=== PATIENT | female | born 1950 | race Caucasian/White ===

== ENCOUNTER 2024-08-17 12:16 | Emergency (ER) | payer BC ==
--- NOTE | 2024-08-17 13:40 | RAD REPORT ---
EXAMINATION: CT LUMBAR SPINE WITHOUT CONTRAST CLINICAL INDICATION: Female, 73 years old. low back pain TECHNIQUE: Axial CT images were obtained through the lumbar spine in soft tissue and bone windows wit hout intravenous contrast. Coronal and Sagittal reformatted images were created from the data set. One or more of the following dose reduction techniques were used: Automated exposure control, adjustm ent of the mA and/ or kV according to patient size, and/or iterative reconstruction. Unless otherwise specified, incidental findings do not require dedicated imaging follow-up. [id number]. COMPARISON: No prior exam. FINDINGS: For purposes of this dictation, it is assumed that there are 5 non rib-bearing lumbar type vertebrae, and the most caudal fully segmented lumbar vertebra is labeled L5. ALIGNMENT: Thoracolumbar curvature. Retrolisthesis of L1 on L2 and L2 on L3 BONES: No significant soft tissue abnormalities. No aggressive osseous lesions. DISCS: Varying degrees of disc height loss. LEVELS: Multilevel degenerative changes with varying degrees of neural foraminal narrowing. No high-g rade central spinal stenosis. SOFT TISSUE: No soft tissue abnormalities. Atherosclerosis. IMPRESSION: No acute lumbar spine abnormalities.
--- NOTE | 2024-08-17 13:43 | RAD REPORT ---
EXAMINATION: Pelvis Wo Cont CLINICAL INDICATION: Female, 73 years old. fall, pelvic pain left side TECHNIQUE: CT pelvis was performed, without IV contrast, as per department protocol. Axial, sagittal and coronal reconstructions were obtained. One or more of the following dose reduction techniques were used: Automated exposure control, adjustment of the mA and/or kV according to patient size, and/ or iterative reconstruction. Unless otherwise specified, incidental findings do not require dedicated imaging follow-up. [id number]. IV CONTRAST: Not administered. COMPARISON: No prior exam. FINDINGS: SMALL BOWEL/COLON: Small bowel has normal course and caliber. No colonic wall thickening or pericolon ic inflammatory changes.Moderate diverticulosis. LYMPH NODES: No lymphadenopathy. ABDOMINAL AORTA AND OTHER VESSELS: Moderate atherosclerotic changes without aortic aneurysm. PERITONEUM: No abnormal free fluid. No free air. ABDOMINAL WALL: No significant abnormality. REPRODUCTIVE ORGANS: No pathologic process. URINARY BLADDER: Underdistended but grossly unremarkable. MUSCULOSKELETAL: Slight offset present at the upper aspect of S2 but without discrete fracture line. No pelvic fractures identified. Mild acetabular degenerative changes. ADDITIONAL FINDINGS: None. IMPRESSION: No acute osseous findings in the pelvis. Incidental findings as noted above.
--- NOTE | 2024-08-17 13:51 | RAD REPORT ---
EXAMINATION: Femur Left CLINICAL INDICATION: Female, 73 years old. PAIN COMPARISON: No prior exam. VIEWS: As above FINDINGS: No acute fracture. No malalignment/dislocation. No significant focal degenerative change. Other: n/a IMPRESSION: No acute osseous abnormality.
--- NOTE | 2024-08-17 14:48 | EDPHYS ---
Physician Documentation [facility] Name: Julia Jaimes Age: 73 yrs Sex: Female : 1950 Arrival Date: 08/17/2024 Time: 12:16 Bed 15 Private MD: ED Physician Shant Trent HPI: 08/17 14:38 This 73 yrs old Female presents to ER via Wheelchair with complaints of Fall Injury, rn Hip Pain. 14:38 Details of fall: The patient fell from an upright position. Onset: The symptoms/episode rn began/occurred 2 week(s) ago. Associated injuries: The patient sustained injury to the low back, Left hip. Severity of symptoms: At their worst the symptoms were moderate, in the emergency department the symptoms are unchanged. The patient has not experienced similar symptoms in the past. The patient has not recently seen a physician. Patient reports fall 2 weeks ago, landed on her butt and back, has been ambulatory but still hurts, thought it would be better by now. Patient reports pain to the left hip, no acute back pain. No abdominal pain. Historical: - Allergies: 12:54 No Known Allergies; cm10 - PMHx: 12:54 Heart murmur; Breast cancer; Skin Cancer; Raynaud's; Rheumatic Fever; cm10 - Immunization history:: Adult Immunizations up to date. - Infectious Disease History:: Denies. - Social history:: Smoking status: Patient denies any tobacco usage or history of. - Family history:: not pertinent. - Hospitalizations: : No recent hospitalization is reported. ROS: 14:38 Constitutional: Negative for fever, chills, and weight loss, Neck: Negative for injury, rn pain, and swelling, Cardiovascular: Negative for chest pain, palpitations, and edema, Respiratory: Negative for shortness of breath, cough, wheezing, and pleuritic chest pain, Abdomen/GI: Negative for abdominal pain, nausea, vomiting, diarrhea, and constipation, Back: Negative for injury and pain, : Negative for injury, bleeding, discharge, and swelling, MS/Extremity: Positive for left hip pain Skin: Negative for injury, rash, and discoloration, Neuro: Negative for headache, weakness, numbness, tingling, and seizure, Exam: 14:38 Constitutional: This is a well developed, well nourished patient who is awake, alert, rn and in no acute distress. Cardiovascular: Regular rate and rhythm. No pulse deficits. Back: No spinal tenderness. MS/ Extremity: Pulses equal, no cyanosis. Neurovascular intact. Full range of motion at the left hip actively and passively. No spinal tenderness. Neuro: Awake and alert, GCS 15 Vital Signs: 12:53 BP 125 / 75; Pulse 81; Resp 15; Temp 97.9(TE); Pulse Ox 100% on R/A; Weight 63.5 kg; cm10 Height 5 ft. 8 in. ; Pain 5/10; 15:00 BP 122 / 74; Pulse 78; Resp 16; Pulse Ox 100% on R/A; db 12:53 Body Mass Index 21.29 (63.50 kg, 172.72 cm) cm10 12:53 Pain Scale: Adult cm10 [place] Coma Score: 15:00 Eye Response: spontaneous(4). Motor Response: obeys commands(6). Verbal Response: db oriented(5). Total: 15. Trauma Score (Adult): 15:00 Eye Response: spontaneous(1); Verbal Response: oriented(1); Motor Response: obeys db commands(2); Systolic BP: > 89 mm Hg(4); Respiratory Rate: 10 to 29 per min(4); [place] Score: 15; Trauma Score: 12 MDM: 12:27 Medical Screening Exam initiated rn 14:46 Differential diagnosis: contusion, fracture, sprain, strain. Data reviewed: vital rn signs, nurses notes, radiologic studies, CT scan, plain films, and as a result, I will discharge patient. Counseling: I had a detailed discussion with the patient and/or guardian regarding the historical points, exam findings, and any diagnostic results supporting the discharge/admit diagnosis, radiology results, the need for outpatient follow up, to return to the emergency department if symptoms worsen or persist or if there are any questions or concerns that arise at home. Special discussion: I discussed with the patient/guardian in detail that at this point there is no indication for admission to the hospital. It is understood, however, that if the symptoms persist or worsen the patient needs to return immediately for re-evaluation. Based on the history and exam findings, there is no indication for further emergent testing or inpatient evaluation. I discussed with the patient/guardian the need to see the orthopedic surgeon for further evaluation of the symptoms. I discussed with the patient/guardian the need to see the primary care provider for further evaluation of the symptoms. ED course: I have personally reviewed all of the results, including but not limited to imaging deemed necessary to safely discharge this patient at this time. No acute fracture or dislocation on x-ray femur/CT pelvis/CT lumbar spine. All results given to and printed out for patient. I personally went over all the results with the patient and answered all questions. Patient will follow-up with PCP and or specialist as discussed. Return precautions given and understood.. 14:46 Special discussion: Further emergent ED testing is not indicated at this point in time. rn I discussed with the patient/guardian in detail the need to arrange with the PCP or specialist further outpatient testing, MRI. 08/17 12:56 Order name: XRAY Femur LEFT; Complete Time: 14:15 rn 08/17 12:56 Order name: CT Lumbar Spine Wo Con; Complete Time: 14:15 rn 08/17 12:56 Order name: CT Pelvis wo Cont; Complete Time: 14:15 rn Administered Medications: 15:18 Drug: Ketorolac IM 30 mg IM once Route: IM; Site: left deltoid; db 15:33 Follow up: Response: No adverse reaction db 15:18 Drug: Dexamethasone IM 10 mg IM once Route: IM; Site: left deltoid; db 15:33 Follow up: Response: No adverse reaction db Disposition Summary: 08/17/24 14:47 Discharge Ordered Notes: Location: Home rn Problem: new rn Symptoms: have improved rn Condition: Stable rn Diagnosis - Contusion of lower back and pelvis rn - Contusion of left hip rn Followup: rn - With: Private Physician - When: As needed - Reason: Recheck today's complaints, Re-evaluation by your physician Discharge Instructions: - Discharge Summary Sheet rn - Contusion rn Forms: - Medication Reconciliation Form rn - Antibiotic sheet metal journeyman - Prescription Opioid Use rn - Patient Portal Instructions rn - Leadership Thank You Letter rn Prescriptions: - gabapentin 100 mg Oral tablet - take 1 tablet ORAL route every 12 hours; 14 tablet; Refills: 0, Product rn Selection Permitted - Medrol (Trace) 4 mg Oral Tablets, Dose Pack - take 1 tablet ORAL route as directed - follow package instructions; 1 packet; rn Refills: 0, Product Selection Permitted Signatures: Dispatcher [employer] EDMS Shant Trent MD MD rn Benton, Danielle, RN RN db Rosamaria Berg RN RN cm10 Corrections: (The following items were deleted from the chart) 14:42 14:38 Constitutional: This is a well developed, well nourished patient who is awake, rn alert, and in no acute distress. rn
--- NOTE | 2024-08-17 14:48 | ER ---
Nurse's Notes [facility] Name: Julia Jaimes Age: 73 yrs Sex: Female : 1950 Arrival Date: 08/17/2024 Time: 12:16 Bed 15 Private MD: Diagnosis: Contusion of lower back and pelvis;Contusion of left hip Presentation: 08/17 12:53 Chief complaint: Patient states: Fell 2 weeks ago when her leg fell asleep. Pt states cm10 that since yesterday she has not been able to walk. pt reports lower back pain and left hip pain. Coronavirus screen: Client denies travel out of the [place] in the last 14 days. Ebola Screen: Patient denies travel to an Ebola-affected area in the 21 days before illness onset. Initial Sepsis Screen: Does the patient meet any 2 criteria? No. Patient's initial sepsis screen is negative. Does the patient have a suspected source of infection? No. Patient's initial sepsis screen is negative. Risk Assessment: Do you want to hurt yourself or someone else? Patient reports no desire to harm self or others. Onset of symptoms was August 17, 2024. 12:53 Method Of Arrival: Wheelchair cm10 12:53 Acuity: CATHERINE 3 cm10 Triage Assessment: 12:56 General: Appears in no apparent distress. uncomfortable, Behavior is calm, cooperative. cm10 Pain: Complains of pain in back and left hip Pain currently is 5 out of 10 on a pain scale. at worst was 10 out of 10 on a pain scale. Aggravated by increased activity. Neuro: No deficits noted. Level of Consciousness is awake, alert, obeys commands, Oriented to person, place, time, situation, Appropriate for age. Respiratory: No deficits noted. Airway is patent Respiratory effort is even, unlabored, Respiratory pattern is regular, symmetrical. Historical: - Allergies: 12:54 No Known Allergies; cm10 - PMHx: 12:54 Heart murmur; Breast cancer; Skin Cancer; Raynaud's; Rheumatic Fever; cm10 - Immunization history:: Adult Immunizations up to date. - Infectious Disease History:: Denies. - Social history:: Smoking status: Patient denies any tobacco usage or history of. - Family history:: not pertinent. - Hospitalizations: : No recent hospitalization is reported. Screenin:00 [facility] ED Fall Risk Assessment (Adult) History of falling in the last 3 months, db including since admission Yes- single mechanical fall (1 pt) Confusion or Disorientation No (0 pts) Intoxicated or Sedated No (0 pts) Impaired Gait No (0 pts) Mobility Assist Device Used No (0 pt) Altered Elimination No (0 pt) Score/Fall Risk Level 0 - 2 = Low Risk Oriented to surroundings, Maintained a safe environment. Abuse screen: Denies threats or abuse. Denies injuries from another. Nutritional screening: No deficits noted. Tuberculosis screening: No symptoms or risk factors identified. Primary Survey: 15:00 NO uncontrolled hemorrhage observed. A: The client is awake and alert. The airway is db patent. Breathing/Chest: Spontaneous respiratory effort, equal unlabored respirations, breath sounds clear bilaterally, regular pattern, symmetrical chest rise and fall. Circulation: No external hemorrhage present. Regular and strong central pulse, skin warm/dry/normal color. Disability Client is alert. Exposure/Environment:. Reassessment Alertness and Airway: Awake and alert. The airway is patent. Breathing: Spontaneous respiratory effort, equal unlabored respirations, breath sounds clear bilaterally, regular pattern with symmetrical chest rise and fall. Circulation: No external hemorrhage noted. Regular and strong central pulse, skin warm/dry/normal color. Disability: Alert. Assessment: 14:48 Reassessment: Patient appears in no apparent distress at this time. Patient and/or db family updated on plan of care and expected duration. Pain level reassessed. Patient is alert, oriented x 3, equal unlabored respirations, skin warm/dry/pink. General: Appears in no apparent distress. uncomfortable, Behavior is calm, cooperative. Pain: Complains of pain in left hip. Neuro: Level of Consciousness is awake, alert, obeys commands, Oriented to person, place, time, situation. Respiratory: Airway is patent Respiratory effort is even, unlabored, Respiratory pattern is regular, symmetrical. Vital Signs: 12:53 BP 125 / 75; Pulse 81; Resp 15; Temp 97.9(TE); Pulse Ox 100% on R/A; Weight 63.5 kg; cm10 Height 5 ft. 8 in. ; Pain 5/10; 15:00 BP 122 / 74; Pulse 78; Resp 16; Pulse Ox 100% on R/A; db 12:53 Body Mass Index 21.29 (63.50 kg, 172.72 cm) cm10 12:53 Pain Scale: Adult cm10 [place] Coma Score: 15:00 Eye Response: spontaneous(4). Motor Response: obeys commands(6). Verbal Response: db oriented(5). Total: 15. Trauma Score (Adult): 15:00 Eye Response: spontaneous(1); Verbal Response: oriented(1); Motor Response: obeys db commands(2); Systolic BP: > 89 mm Hg(4); Respiratory Rate: 10 to 29 per min(4); [place] Score: 15; Trauma Score: 12 ED Course: 12:23 Patient arrived in ED. ra3 12:27 Shant Trent MD is Attending Physician. rn 12:54 Triage completed. cm10 12:56 Arm band placed on right wrist. Patient placed in waiting room, in a wheelchair. cm10 13:24 CT Lumbar Spine Wo Con In Process Unspecified. EDMS 13:24 CT Pelvis wo Cont In Process Unspecified. EDMS 13:30 XRAY Femur LEFT In Process Unspecified. EDMS 15:00 Shy Chong, RN is Primary Nurse. db 15:00 Patient has correct armband on for positive identification. Bed in low position. Call db light in reach. Side rails up X 1. 15:35 Provided Education on: DISCHARGE AND FOLLOWUP. db 15:35 No provider procedures requiring assistance completed. Patient did not have IV access db during this emergency room visit. Administered Medications: 15:18 Drug: Ketorolac IM 30 mg IM once Route: IM; Site: left deltoid; db 15:33 Follow up: Response: No adverse reaction db 15:18 Drug: Dexamethasone IM 10 mg IM once Route: IM; Site: left deltoid; db 15:33 Follow up: Response: No adverse reaction db Medication: 15:00 VIS not applicable for this client. db Output: 15:00 Urine: 0ml; Total: 0ml. db Outcome: 14:47 Discharge ordered by . rn 15:35 Discharged to home via wheelchair, db 15:35 Condition: stable 15:35 Discharge instructions given to patient, family, Instructed on discharge instructions, follow up and referral plans. Prescriptions given X 2, 15:37 Patient left the ED. db Signatures: Dispatcher [employer] EDMS Shant Trent MD MD rn Chong, Shy, RN RN db Rosamaria Berg RN RN 10 Cindy Alvarado
[2024-08-17] MEDS ORDERED: KETOROLAC 30 MG/ML INJ ONE (15:18)
[2024-08-17] MEDS ORDERED: dexAMETHasone 10 MG/ML VIAL ONE (15:18)
[2024-08-17 15:47] VITALS: TEMP 97.9; O2SAT 100
[2024-08-17 15:49] VITALS: BP 122/74
== END 2024-08-17 15:37 | disposition home or self-care (01) ==
LOC: ER 12:16
DX: S30.0XXA Contusion of lower back and pelvis, initial encounter (principal); S70.02XA Contusion of left hip, initial encounter; W18.30XA Fall on same level, unspecified, initial encounter
CPT/HCPCS: 72131; 72192; 96372; 99284; J1100